=== PATIENT | female | born 1945 | race Caucasian/White ===

== ENCOUNTER → 2023-10-09 12:06 | Outpatient (BNVA) | payer MEDICARE, OTHER, SELFPAY | PROVIDERS: PCP Family Medicine; Referring Provider Family Medicine; Visit Provider Internal Medicine | DX: M81.0 Age-related osteoporosis without current pathological fracture (principal); E07.9 Disorder of thyroid, unspecified; E83.52 Hypercalcemia; I25.10 Atherosclerotic heart disease of native coronary artery without angina pectoris; I11.0 Hypertensive heart disease with heart failure | CPT/HCPCS: 80053; 82306; 82310; 83970; 99204 ==

== ENCOUNTER 2024-01-20 08:18 | Outpatient (CLI) | payer MEDICARE, OTHER, SELFPAY ==
[2024-01-20 09:09] LABS: Calcium 10.8 mg/dL (8.5-10.5)
[2024-01-20 09:16] LABS: Parathyroid Hormone 84.7 pg/mL (15-65)
[2024-01-20 09:25] LABS: 25 Hydroxy Vitamin D 47 ng/mL (30-100)
== END 2024-01-20 08:19 ==
LOC: LAB 08:20
PROVIDERS: PCP Family Medicine; Visit Provider Internal Medicine
DX: Z13.820 Encounter for screening for osteoporosis (principal); M81.0 Age-related osteoporosis without current pathological fracture; E07.9 Disorder of thyroid, unspecified; E55.9 Vitamin D deficiency, unspecified; E21.5 Disorder of parathyroid gland, unspecified; I50.9 Heart failure, unspecified; I25.10 Atherosclerotic heart disease of native coronary artery without angina pectoris; I11.0 Hypertensive heart disease with heart failure
CPT/HCPCS: 36415; 82306; 82310; 83970; 99214